=== PATIENT | male | born 1960 | race Caucasian/White ===

== ENCOUNTER 2017-07-04 11:40 | Emergency (ER) | payer MEDICAID ==
[2017-07-04 15:09] LABS: BASOPHIL % 0.4 % (0-2); PLATELET COUNT 196 x10^3mcL (130-400)
[2017-07-04 15:14] LABS: CALCIUM 8.4 mg/dL (8.5-10.1); CARBON DIOXIDE 26.5 mmol/L (21-32); CHLORIDE SERUM 102 mmol/L (98-107); CREATININE SERUM 0.9 mg/dL (0.7-1.3); GFR1 > 60 mL/min; GLUCOSE SERUM 97 mg/dL (74-106); POTASSIUM SERUM 3.9 mmol/L (3.5-5.1); SODIUM SERUM 135 mmol/L (136-145)
[2017-07-04 15:18] LABS: ALBUMIN 3.9 g/dL (3.4-5.0); ALKALINE PHOSPHATASE 74 U/L (46-116); ALT/SGPT 30 U/L (16-63); AST/SGOT 21 U/L (15-37); BILIRUBIN TOTAL 0.6 mg/dL (0.20-1.00); LIPASE 162 IU/L (73-393); TOTAL PROTEIN, SERUM 7.3 g/dL (6.4-8.2)
[2017-07-04 17:12] LABS: microscopic required? YES; urine erythrocyte TRACE (NEGATIVE)
[2017-07-04 17:28] VITALS: BP 135/95
== END 2017-07-04 17:28 | disposition home or self-care (01) ==
LOC: ED 11:40
PROVIDERS: Emergency Medicine
DX: R10.12 Left upper quadrant pain (principal); I10 Essential (primary) hypertension; K21.9 Gastro-esophageal reflux disease without esophagitis
CPT/HCPCS: J2270; J2405; J7030; Q0092